=== PATIENT | female | born 1975 | race African-American/Black ===

== ENCOUNTER 2023-06-16 14:59 | Emergency (ER) | payer OTHER ==
[2023-06-16] MEDS ORDERED: LEVOFLOXACIN 750MG-D5W PMX 750 MG in DEXTROSE/WATER 1 150ML.BAG IVPB STA (15:37)
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
[2023-06-16 18:09] VITALS: BP 118/64; PULSE 77; RESP 16; TEMP 98.3
== END 2023-06-16 18:13 | disposition home or self-care (01) ==
LOC: EC 14:59
DX: S01.111D Laceration without foreign body of right eyelid and periocular area, subsequent encounter (principal); F17.200 Nicotine dependence, unspecified, uncomplicated; Z88.0 Allergy status to penicillin; X58.XXXD Exposure to other specified factors, subsequent encounter
CPT/HCPCS: 99282; 96365; J1956

== ENCOUNTER 2023-06-21 11:38 | Emergency (ER) | payer OTHER ==
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
[2023-06-21] MEDS ORDERED: KETOROLAC 15 MG/ML 1 ML VIAL IM STA (12:32)
[2023-06-21] MEDS ORDERED: MORPHINE SULFATE 4 MG/ML SYRINGE IM STA (12:32)
[2023-06-21] MEDS ORDERED: LIDOCAINE 5% PATCH TOPICAL STA (12:32)
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
[2023-06-21 14:06] VITALS: BP 126/80; PULSE 85; RESP 16; TEMP 97.9
== END 2023-06-21 15:10 | disposition home or self-care (01) ==
LOC: EC 11:38
DX: S22.41XA Multiple fractures of ribs, right side, initial encounter for closed fracture (principal); F17.200 Nicotine dependence, unspecified, uncomplicated; Z88.0 Allergy status to penicillin; V89.2XXA Person injured in unspecified motor-vehicle accident, traffic, initial encounter; Y92.410 Unspecified street and highway as the place of occurrence of the external cause
CPT/HCPCS: 71101; 99284; 96372 ×2; J2270; J1885